=== PATIENT | female | born 1985 | race Caucasian/White ===

== ENCOUNTER 2019-08-04 15:12 | Emergency (ER) | payer OTHER ==
[~2019-08-04] VITALS: Ht 170.2 cm; Wt 100.3 kg
[2019-08-04 15:35] VITALS: BP 154/84
[2019-08-04] MEDS ORDERED: DIPH,PERTUSS(ACELL),TET VAC/PF 0.5 ML IM-VACC ONE ×2 (16:00→17:09)
--- NOTE | 2019-08-04 16:59 | NUR ---
TO C[facility]ST[facility] FROM [facility]
[2019-08-04] MEDS ORDERED: NEOSPORIN OINT. PKT 1 PACKET ONE (17:13)
--- NOTE | 2019-08-04 17:31 | NUR ---
[employer] PER [facility]
== END 2019-08-04 17:50 | disposition home or self-care (01) ==
LOC: ED 17:30
DX: S61.052A Open bite of left thumb without damage to nail, initial encounter (principal); S61.452A Open bite of left hand, initial encounter; W54.0XXA Bitten by dog, initial encounter; Y93.89 Activity, other specified; Y92.89 Other specified places as the place of occurrence of the external cause; Y99.8 Other external cause status
CPT/HCPCS: 90471; 90715; 99283